=== PATIENT | female | born 1995 ===

== ENCOUNTER 2016-11-08 20:53 | Emergency (ER) | payer OTHER ==
[2016-11-08 21:35] VITALS: O2SAT 99
[2016-11-08] MEDS ORDERED: Sodium Chloride 0.9% 1,000 ML IV ONE (22:20)
[2016-11-08 22:23] LABS: RBC URINE 41 /hpf (0-3); URINE BACTERIA RARE (<OCC); URINE BILIRUBIN NEGATIVE (NEGATIVE); URINE BLOOD 2+ (NEGATIVE); URINE COLOR Yellow (YELLOW); URINE GLUCOSE (UA) NORMAL (Normal); URINE KETONE NEGATIVE (NEGATIVE); URINE LEUKOCYTE ESTERASE 1+ Leu/uL (Negative); URINE PROTEIN 1+ mg/dL (NEGATIVE); URINE UROBILINOGEN NORMAL mg/dL (0.2-1.0); WBC URINE 34 /hpf (0-5)
[2016-11-08 22:51] LABS: BASO % 0.3 % (0.0-2.0); EOS # 0.2 K/uL (0.0-0.7); EOS % 1.3 % (0.0-4.0); HEMATOCRIT 37.7 % (34.0-47.0); LYMPH # 2.2 K/uL (1.0-4.3); LYMPH % 15.8 % (20.0-40.0); MEAN CELL VOLUME 88.9 fL (81.0-99.0); MEAN CORPUSCULAR HEMOGLOBIN 30.4 pg (27.0-31.0); MEAN CORPUSCULAR HGB CONC 34.2 g/dL (33.0-37.0); MEAN PLATELET VOLUME 8.6 fL (7.2-11.7); MONO % 7.2 % (0.0-10.0); RED CELL DISTRIBUTION WIDTH 13.4 % (11.5-14.5); WHITE BLOOD COUNT 13.6 K/uL (4.8-10.8)
[2016-11-08 22:59] LABS: CHLORIDE 102 mmol/L (98-107); SODIUM 139 mmol/L (132-148)
[2016-11-08 23:00] LABS: POTASSIUM 3.7 mmol/L (3.6-5.2)
[2016-11-08 23:02] LABS: ALB/GLOB RATIO 1.3 (1.0-2.1); ALKALINE PHOSPHATASE 57 U/L (38-126); ALT/SGPT 25 U/L (9-52); AST/SGOT 22 U/L (14-36); BILIRUBIN,TOTAL 0.8 mg/dL (0.2-1.3); BLOOD UREA NITROGEN 8 mg/dL (7-17); CARBON DIOXIDE 27 mmol/L (22-30); GFR AFRICAN-AMERICAN > 60; GLUCOSE,RANDOM 89 mg/dL (65-105); TOTAL PROTEIN 8.4 g/dL (6.3-8.3)
[2016-11-08 23:03] LABS: CALCIUM 9.6 mg/dl (8.6-10.4)
[2016-11-08] MEDS ORDERED: Sodium Chloride 0.9% 1,000 ML ONE (23:03)
--- NOTE | 2016-11-08 23:59 | C.PDOC ---
Time Seen by Provider: 11/08/16 21:58 Chief Complaint (Nursing): Abdominal Pain History Per: Patient Onset/Duration Of Symptoms: Days (few) Current Symptoms Are (Timing): Worse Severity: Moderate Location Of Pain/Discomfort: Suprapubic Radiation Of Pain To:: Back Associated Symptoms: Back Pain, Urinary Symptoms Exacerbating Factors: None Alleviating Factors: None Additional History Per: Prior Records Abnormal Vaginal Bleeding: No Past Medical History Reviewed: Historical Data, Nursing Documentation, Vital Signs Vital Signs: Last Vital Signs Temp 98.7 F 11/08/16 21:30 Pulse 97 H 11/08/16 21:30 Resp 20 11/08/16 21:30 BP 126/88 11/08/16 21:30 Pulse Ox 99 11/08/16 21:30 - Medical History PMH: No Chronic Diseases Surgical History: No Surg Hx Family History: States: Unknown Family Hx - Social History Hx Alcohol Use: Yes Hx Substance Use: No Review Of Systems Except As Marked, All Systems Reviewed And Found Negative. Constitutional: Negative for: Fever, Weakness Cardiovascular: Negative for: Chest Pain Respiratory: Negative for: Shortness of Breath Gastrointestinal: Negative for: Vomiting, Diarrhea Genitourinary: Positive for: Dysuria. Negative for: Vaginal Discharge Musculoskeletal: Positive for: Back Pain. Negative for: Neck Pain Skin: Negative for: Rash Neurological: Negative for: Weakness, Numbness, Seizures, Altered Mental Status Physical Exam - Physical Exam Appears: Non-toxic, No Acute Distress Skin: Normal Color, Warm, Dry, No Rash Head: Atraumatic, Normacephalic Eye(s): bilateral: Normal Inspection, PERRL, EOMI Neck: Normal ROM, Supple Cardiovascular: Rhythm Regular Respiratory: Normal Breath Sounds, No Accessory Muscle Use Gastrointestinal/Abdominal: Soft, Tenderness (mild suprapubic), No Guarding, No Rebound Back: No CVA Tenderness Extremity: Normal ROM Neurological/Psych: Oriented x3, Normal Motor, Normal Sensation ED Course And Treatment - Laboratory Results Result Diagrams: 11/08/16 22:48 11/08/16 22:48 Interpretation Of Abnormal: UTI, urine C&S sent. Urine POC: Negative O2 Sat by Pulse Oximetry: 99 Pulse Ox Interpretation: Normal Reassessment Condition: Improved Disposition Counseled Patient/Family Regarding: Studies Performed, Diagnosis, Need For Followup, Rx Given - Disposition Disposition: HOME/ ROUTINE Disposition Time: 23:59 Condition: STABLE Additional Instructions: Drink plenty of fluids. Follow up with your doctor this week. Return to the ER if you develop fever, vomiting, worsening of symptoms or if you have any other concerns. Prescriptions: Ciprofloxacin [Cipro] 1 tab PO BID #14 tab Instructions: Urinary Tract Infection in Women (ED) - Clinical Impression Clinical Impression: UTI (urinary tract infection)
[2016-11-09 00:10] VITALS: BP 113/68; PULSE 74; RESP 18; TEMP 99.2
== END 2016-11-09 00:11 | disposition home or self-care (01) ==
LOC: C.ER 20:53
DX: N39.0 Urinary tract infection, site not specified (principal)
CPT/HCPCS: 80053; 81001; 83690; 84703; 85025; 87086; 87181; 96360; 99285; J7040

== ENCOUNTER 2016-11-11 01:25 | Emergency (ER) | payer OTHER ==
[2016-11-11] MEDS ORDERED: Sodium Chloride 0.9% 1,000 ML IV ONE (01:47)
[2016-11-11] MEDS ORDERED: Vancomycin 1 gm/NS 200 ml 1 GM/200 ML BAG IVPB STA (01:48)
[2016-11-11 02:04] LABS: RBC URINE 15 /hpf (0-3); URINE BACTERIA RARE (<OCC); URINE BILIRUBIN NEGATIVE (NEGATIVE); URINE BLOOD 1+ (NEGATIVE); URINE COLOR Yellow (YELLOW); URINE GLUCOSE (UA) NORMAL (Normal); URINE KETONE NEGATIVE (NEGATIVE); URINE LEUKOCYTE ESTERASE NEG Leu/uL (Negative); URINE PROTEIN NEGATIVE (NEGATIVE); URINE UROBILINOGEN NORMAL mg/dL (0.2-1.0); WBC URINE 1 /hpf (0-5)
[2016-11-11] MEDS ORDERED: Vancomycin 1 GM 0 GM/0 ML BAG IVPB ONE (02:12)
[2016-11-11] MEDS ORDERED: Vancomycin 1 GM 1 GM/250 ML BAG IVPB ONE (02:15)
[2016-11-11 02:16] LABS: VENOUS BLOOD GAS BASE EXCESS 1.9 mmol/L (0.0-2.0); VENOUS BLOOD GAS PCO2 41 mmHg (40-60); VENOUS BLOOD PH 7.42 (7.32-7.43)
[2016-11-11 02:18] LABS: BASO # 0.1 K/uL (0.0-0.2); BASO % 1.1 % (0.0-2.0); EOS # 0.2 K/uL (0.0-0.7); EOS % 2.8 % (0.0-4.0); HEMATOCRIT 35.6 % (34.0-47.0); LYMPH # 0.4 K/uL (1.0-4.3); LYMPH % 6.7 % (20.0-40.0); MEAN CELL VOLUME 89.8 fL (81.0-99.0); MEAN CORPUSCULAR HEMOGLOBIN 30.6 pg (27.0-31.0); MEAN CORPUSCULAR HGB CONC 34.1 g/dL (33.0-37.0); MEAN PLATELET VOLUME 9.3 fL (7.2-11.7); MONO # 0.6 K/uL (0.0-0.8); MONO % 8.7 % (0.0-10.0); PLATELET COUNT 160 K/uL (130-400); RED CELL DISTRIBUTION WIDTH 13.3 % (11.5-14.5); WHITE BLOOD COUNT 6.6 K/uL (4.8-10.8)
[2016-11-11 02:20] LABS: INR 1.3
[2016-11-11 02:22] LABS: CHLORIDE 99 mmol/L (98-107); POTASSIUM 3.7 mmol/L (3.6-5.2); SODIUM 139 mmol/L (132-148)
[2016-11-11 02:24] LABS: BILIRUBIN,TOTAL 0.6 mg/dL (0.2-1.3); CARBON DIOXIDE 24 mmol/L (22-30); GFR AFRICAN-AMERICAN > 60
[2016-11-11 02:25] LABS: ALB/GLOB RATIO 1.3 (1.0-2.1); ALKALINE PHOSPHATASE 42 U/L (38-126); ALT/SGPT 28 U/L (9-52); AST/SGOT 22 U/L (14-36); BLOOD UREA NITROGEN 9 mg/dL (7-17); CALCIUM 9.5 mg/dl (8.6-10.4); GLUCOSE,RANDOM 101 mg/dL (65-105); MAGNESIUM 1.5 mg/dL (1.6-2.3); TOTAL PROTEIN 7.9 g/dL (6.3-8.3)
--- NOTE | 2016-11-11 02:25 | C.PDOC ---
History Of Present Illness 21 yo female w/recent hx of UTI come in for evaluation of bodyaches, fever, gradually developed for past 24 hours. Pt reports, was seen here in ED on and diagnosed with UTI, Pt admits, taking Cipro with moderate improvement in UTI sx. Now, c/o bodyaches, diffuse lower back pain. Otherwise, pt denies headache, dizziness, sore throat, drooling, neck pain, CP, cough, SOB, wheezing , abd. pain, N/V/D, pain on urination, hematuria, vaginal irritation or discharges. Ambulate to Ed for evaluation, not in any apparent distress. Chart from previous visit to ED on 11/08/16 review, blood work review with mild leukocytosis, UA (+) for UTI, and UCx review (+)staph saprophyticus with sensitivity to Cipro and resistance to PCN. Time Seen by Provider: 11/11/16 01:45 Chief Complaint (Nursing): Fever History Per: Patient Past Medical History Reviewed: Historical Data, Nursing Documentation, Vital Signs Vital Signs: Last Vital Signs Temp 100.7 F H 11/11/16 04:00 Pulse 98 H 11/11/16 04:00 Resp 16 11/11/16 04:00 BP 108/55 L 11/11/16 04:00 Pulse Ox 98 11/11/16 04:00 Surgical History: No Surg Hx Family History: States: No Known Family Hx - Social History Hx Alcohol Use: Yes Hx Substance Use: No - Immunization History Hx Tetanus Toxoid Vaccination: No Hx Pneumococcal Vaccination: No Review Of Systems Except As Marked, All Systems Reviewed And Found Negative. Constitutional: Positive for: Fever, Chills ENT: Negative for: Ear Discharge, Nose Discharge, Nose Congestion, Mouth Swelling, Throat Pain, Throat Swelling Cardiovascular: Negative for: Chest Pain, Palpitations Respiratory: Negative for: Cough, Shortness of Breath, Wheezing Gastrointestinal: Negative for: Nausea, Vomiting, Abdominal Pain Genitourinary: Negative for: Frequency, Incontinence, Hematuria Musculoskeletal: Positive for: Back Pain Skin: Negative for: Rash Neurological: Negative for: Weakness, Numbness, Altered Mental Status, Headache , Dizziness Physical Exam - Physical Exam Appears: Well, Non-toxic, No Acute Distress Skin: Normal Color, Warm, Dry, No Rash Eye(s): bilateral: PERRL Ear(s): Bilateral: Normal Nose: No Discharge Oral Mucosa: Moist, No Drooling Tongue: Normal Appearing Lips: Normal Appearing Throat: No Erythema, No Exudate, No Drooling Neck: Normal ROM, Supple, Other ((-) meningeal sign) Cardiovascular: Rhythm Regular Respiratory: No Decreased Breath Sounds, No Accessory Muscle Use, No Stridor, No Wheezing Gastrointestinal/Abdominal: Soft, No Tenderness, No Distention, No Guarding, No Rebound Back: No CVA Tenderness Extremity: No Pedal Edema, No Deformity, No Swelling Neurological/Psych: Oriented x3, Normal Speech ED Course And Treatment - Laboratory Results Result Diagrams: 11/11/16 02:13 11/11/16 02:13 Lab Interpretation: No Acute Changes Urine POC: Negative O2 Sat by Pulse Oximetry: 100 Pulse Ox Interpretation: Normal Progress Note: On re-evaluation, pt resting comforatbly, not in any apparent distress. fever improved, hemodynamicaly stable. Non-toxic, tolerate Po well in ED. PusleOx 98%RA. ENT: no acute findings. neck: Supple, (-) meningeal sign. Lungs: CTA B/L, BS equal B/L. Abd: benign, (-) guarding, (-) rebound, (- ) localized tenderness. back: (-) CVA tenderness. Blood work review and appears improved c/w previous visit to ED on 11/08/16, no leukocytosis, UA- normal study. Influenza (-). Pt has clinical findings c/w fever, bodyaches, r/ o viral illness. Patient advised to cont.abx as initiated. Ref. to f/U with PMD, [facility] in 2-3 days for re-eval. return to ED if any worsening or new changes. Disposition Counseled Patient/Family Regarding: Studies Performed, Diagnosis, Need For Followup - Disposition Referrals: [facility] [Outside] Disposition: HOME/ ROUTINE Disposition Time: 04:00 Condition: STABLE Additional Instructions: Encourage fluids Continue antibiotic as prescribed Follow up with PMD in 1-2 days for re-evaluation. Return to ED if any worsening or new changes. Instructions: Fever in Adults (ED), Viral Syndrome (ED) Forms: [employer] (Italian), Work Excuse - Clinical Impression Clinical Impression: Fever, Influenza-like illness
[2016-11-11 03:12] LABS: BASOPHIL 1 % (0-2); EOSINOPHIL 1 % (0-4); NEUTROPHIL 83 % (50-75); TOTAL CELLS COUNTED 100
[2016-11-11 04:01] VITALS: BP 108/55; PULSE 98; RESP 16; TEMP 100.7
[2016-11-11 04:35] VITALS: O2SAT 100
== END 2016-11-11 04:49 | disposition home or self-care (01) ==
LOC: C.ER 01:25
DX: R50.9 Fever, unspecified (principal); J11.1 Influenza due to unidentified influenza virus with other respiratory manifestations
CPT/HCPCS: 80053; 81001; 82803; 83735; 84703; 85025; 85610; 85730; 87040; 87086; 87804; 96365; 96366; 96375; 99285; J1885; J3370; J7040